=== PATIENT | female | born 1990 | race Caucasian/White ===

== ENCOUNTER → 2020-02-18 16:23 | Outpatient (CLI) | payer OTHER, SELFPAY ==
[2020-02-18 15:45] VITALS: BMI 26.6
[2020-02-18 17:38] LABS: Amphetamine Urine VISTA NEGATIVE (<1000 ng/mL); Barbiturate Urine VISTA NEGATIVE (< 200 ng/mL); Benzodiazepine Urine VISTA NEGATIVE (< 200 ng/mL); Cocaine Urine VISTA NEGATIVE (< 300 ng/mL); Ecstacy Urine VISTA NEGATIVE (< 500 ng/mL); Methadone Urine VISTA NEGATIVE (< 300 ng/mL); PCP Urine VISTA NEGATIVE (< 25 ng/mL); THC Urine VISTA NEGATIVE (< 50 ng/mL); Vista UDS pH Range 5
[2020-02-18 17:44] LABS: Absolute Neutrophil Count 5.6 X10^3/uL (2.0-7.7); Basophil# 0.02 X10^3/uL; Basophil% 0.3 % (0-1); Eosinophil# 0.09 X10^3/uL; Eosinophils% 1.1 % (0-5); Hemoglobin 12.8 g/dL (12.0-15.0); Lymphocyte % 20.4 % (19-41); Mean Corp Hgb Conc 32.8 g/dL (32-36); Mean Corpuscular Hgb 28.8 pg (27.0-32.0); Mean Corpuscular Volume 87.8 fL (81-99); Mean Platelet Vol. 10.1 fl (6.2-12.0); Monocyte# 0.52 X10^3/uL; Monocyte% 6.6 % (0-10); NRBC Flagged by Analyzer 0 % (0-5); Neutrophil % 71.2 % (47-70); Platelet Count 199 K/mm3 (150-450); RBC Distribution Width CV 12.5 % (11.6-14.6); RBC Distribution Width SD 40.4 fl (35.1-43.9); Red Blood Count 4.44 M/mm3 (4.2-5.4); White Blood Count 7.9 K/mm3 (4.4-11.0)
[2020-02-18 18:04] LABS: Amphetamine Urine VISTA NEGATIVE (<1000 ng/mL); Barbiturate Urine VISTA NEGATIVE (< 200 ng/mL); Benzodiazepine Urine VISTA NEGATIVE (< 200 ng/mL); Cocaine Urine VISTA NEGATIVE (< 300 ng/mL); Ecstacy Urine VISTA NEGATIVE (< 500 ng/mL); Methadone Urine VISTA NEGATIVE (< 300 ng/mL); PCP Urine VISTA NEGATIVE (< 25 ng/mL); THC Urine VISTA NEGATIVE (< 50 ng/mL); Vista UDS pH Range 5
[2020-02-18 19:33] LABS: Chlamydia Trachomatis by PCR Negative (Negative); Neisserai gonorrhoeae by PCR Negative (Negative); Probe Check PASS; Sample Adequacy Control PASS; Specimen Processing Control PASS
[2020-02-19 10:08] LABS: HIV - WCH Non-Reactive (Nonreactive); Hepatitis B Surface Antigen Non-Reactive (Nonreactive); Hepatitis C Antibody Non-Reactive (Nonreactive); Rubella IgG 86.3 IU/mL
[2020-02-21 01:57] LABS: Rapid Plasmin Reagin (RPR) NONREACTIVE (NONREACTIVE)
[2020-02-21 21:09] LABS: HPV APTIMA, High Risk Negative (Negative)
== END ==
PROVIDERS: PCP Nurse Practitioner Family; Referring Provider Obstetrics & Gynecology; Visit Provider Obstetrics & Gynecology
DX: Z34.80 Encounter for supervision of other normal pregnancy, unspecified trimester (principal); Z12.4 Encounter for screening for malignant neoplasm of cervix
CPT/HCPCS: 36415; 80307; 85025; 86592; 86703; 86762; 86803; 86850; 86900; 86901; 87086; 87340; 87491; 87591; 87624; 88175; G0145

== ENCOUNTER → 2020-06-02 09:14 | Outpatient (CLI) | payer OTHER, SELFPAY ==
[2020-05-05 09:36] VITALS: BMI 26.6
[2020-06-02 09:32] LABS: Absolute Lymphocyte Count 1.46 X10^3/uL (0.83-4.51); Absolute Neutrophil Count 9.1 X10^3/uL (2.0-7.7); Basophil# 0.03 X10^3/uL; Basophil% 0.3 % (0-1); Eosinophil# 0.09 X10^3/uL; Eosinophils% 0.8 % (0-5); Hematocrit 36.3 % (37-47); Hemoglobin 12.2 g/dL (12.0-15.0); Lymphocyte # 1.46 X10^3/ul (4.0); Lymphocyte % 12.7 % (19-41); Mean Corp Hgb Conc 33.6 g/dL (32-36); Mean Corpuscular Hgb 30.6 pg (27.0-32.0); Mean Platelet Vol. 9.4 fl (6.2-12.0); Monocyte# 0.68 X10^3/uL; Monocyte% 5.9 % (0-10); NRBC Flagged by Analyzer 0 % (0-5); Neutrophil % 79.1 % (47-70); Platelet Count 182 K/mm3 (150-450); RBC Distribution Width SD 42.8 fl (35.1-43.9); Red Blood Count 3.99 M/mm3 (4.2-5.4); White Blood Count 11.5 K/mm3 (4.4-11.0)
[2020-06-02 09:43] LABS: Glucose Challenge Gest 1H 50g 89 mg/dL (70-140)
== END ==
PROVIDERS: PCP Nurse Practitioner Family; Referring Provider Obstetrics & Gynecology; Visit Provider Obstetrics & Gynecology
DX: Z34.80 Encounter for supervision of other normal pregnancy, unspecified trimester (principal)
CPT/HCPCS: 36415; 82950; 85025

== ENCOUNTER → 2020-08-11 15:46 | Outpatient (CLI) | payer OTHER, SELFPAY ==
[2020-08-11 08:29] VITALS: BMI 32.5
== END ==
PROVIDERS: PCP Nurse Practitioner Family; Visit Provider Obstetrics & Gynecology
DX: Z34.90 Encounter for supervision of normal pregnancy, unspecified, unspecified trimester (principal)
CPT/HCPCS: 87081

== ENCOUNTER → 2020-09-01 10:14 | Outpatient (CLI) | payer OTHER, SELFPAY ==
[2020-08-18 08:17] VITALS: BMI 32.4
[2020-09-01 08:44] VITALS: BMI 33.5
== END ==
PROVIDERS: PCP Nurse Practitioner Family; Referring Provider Obstetrics & Gynecology; Visit Provider Obstetrics & Gynecology
DX: Z11.59 Encounter for screening for other viral diseases (principal)
CPT/HCPCS: 87635; C9803; U0003

== ENCOUNTER 2020-09-06 01:15 | Inpatient (IN) | payer OTHER, SELFPAY ==
[2020-09-01 08:44] VITALS: BMI 33.5
[2020-09-05 22:38] VITALS: BMI 33.1
[2020-09-05 22:44] VITALS: BP 140/68
[2020-09-05 22:45] VITALS: PULSE 77; PULSE 79; TEMP 36.3; O2SAT 97; O2SAT 98
[2020-09-05 23:56] LABS: Absolute Neutrophil Count 15.6 X10^3/uL (2.0-7.7); Basophil# 0.04 X10^3/uL; Basophil% 0.2 % (0-1); Eosinophil# 0.03 X10^3/uL; Eosinophils% 0.2 % (0-5); Hemoglobin 13.2 g/dL (12.0-15.0); Mean Corp Hgb Conc 33.8 g/dL (32-36); Mean Corpuscular Hgb 30.1 pg (27.0-32.0); Mean Platelet Vol. 10.3 fl (6.2-12.0); Monocyte% 5.4 % (0-10); NRBC Flagged by Analyzer 0 % (0-5); Neutrophil # 15.58 X10^3/uL (2.7-7.7); Neutrophil % 84.5 % (47-70); Platelet Count 180 K/mm3 (150-450); RBC Distribution Width CV 12.7 % (11.6-14.6); RBC Distribution Width SD 41.4 fl (35.1-43.9); Red Blood Count 4.38 M/mm3 (4.2-5.4); White Blood Count 18.4 K/mm3 (4.4-11.0)
[2020-09-06] VITALS (63 sets, daily range): BP systolic 101–134; BP diastolic 51–80; PULSE 69–194; RESP 16–18; TEMP 36.3–37.6; O2SAT 83–99
[2020-09-06] MEDS: Lactated Ringers 1,000 ML 50 ML IV (02:10)
[2020-09-06] MEDS: Lactated Ringers 500 ML 999 ML IV ×4 (02:11→12:10)
[2020-09-06] MEDS: fentaNYL-bupivacaine (epidural) 100 ML BAG EPIDURAL ×2 (04:03→09:20)
--- NOTE | 2020-09-06 04:47 | PCM.HPOB.BLA ---
- Problem List (1) 34 weeks gestation of Status: Acute Comment: electronic covid test ordered 07/30/2020sc (scheduled for 09/01/20 at 0915) (2) Lab test negative for COVID-19 virus Status: Acute Comment: 09/02/20 (3) Neck pain Status: Acute (4) Status: Acute Qualifiers: Comment: declines NIPT, carrier, ntd screening. nl anatomy US. (5) Segmental and somatic dysfunction of cervical region Status: Acute (6) Segmental and somatic dysfunction of sacral region Status: Acute (7) Segmental and somatic dysfunction of thoracic region Status: Acute (8) Supervision of other normal Status: Acute Comment: PRR MAEVE 09/05/20 surprise Spouse: TJ History and Physical Date of Admission: 09/06/20 Intake Vital Signs 09/01/20 Height 5 ft 4 in 09/01/20 Weight: 195 lb 09/01/20 BP 110/72 Intake Visit Reasons: 39 WK OB Chief Complaint: est ob Is patient in pain?: No Allergies ragweed pollen Allergy (Mild, Verified 09/01/20 08:48) Other Medications multivitamin no.47-iron fum 27 mg-folate no.1 1 mg-dha 300 mg capsule cap PO 02/18/20 [History Confirmed 09/01/20] Last Menstral Period: 11/25/19 Zika: Zika virus screening: Negative : No PFSH PFSH Medical History History of miscarriage (Acute ~2016) PAC (premature atrial contraction) (Acute) Seasonal allergies (Acute) Family History Grandfather No problems noted. Grandmother Thyroid disorder Social History (Updated 09/01/20 @ 09:[address] Teresa Sunshine MD) adopted: No household members: spouse housing: house current occupational status: employed, student current occupation: [employer] pets and animals: Yes history of recent travel: Yes out of country: Yes sexually active: Yes second hand exposure: No alcohol intake: never substance use type: does not use seatbelt use: always do you feel safe at home: Yes additional social history: TJ- marketing Pregancy History 2 Elective abortions Hx Para 0 Spontaneous abortions 1 Hx # Term Pregnancies Ectopic pregnancies Hx # Pregnancies Multiple births # of living children HPI 39 WK OB: Details: CLINT CORONEL is a 30 year old @ 40w1d presents IAL /-1 with regular ctx since last night. she denies any vb lof admits good fm. she has had an uncomplicated OB Visit MAEVE Calculator Estimated Delivery Date Method Current WG Current Estimate 09/05/20 Ultrasound #1 39w 3d Expected Delivery Route/Plan plan delivery by 41 weeks Labor Preferences- CB/BF classes: planning in may and jun labor support person: REGGIE labor intervention preferences: open to standard interventions pain management options preferred: epidural cut cord/dad catch: cord, maybe catch : yes PP control planned: [] discussed possible routes of delivery and associated risks: discussed possible delivery modalities and possible indications for each including R/B/A of , VAVD, FAVD, and CS. questions answered. special requests: none Specific Issue/Plans flu vaccine: 06/02/2020 tdap vaccine: 07/03/2020 rhogam: NA LARC form signed: 07/03 Problem list reviewed and updated with the most current plan of care details and appropriate orders placed. Relevant counseling for the gestational age provided. Continue routine care and follow up unless otherwise noted in visit notes/problem list details Initial Weight: 160 lb Date EGA Weight BP Urine Prot Glucose FHR FuHt Pres Dilation Effaced St Visit Note 04/07/20 18w 3d 163 lb 8 oz (+3 lb 8 oz) 120/68 Negative Negative 152 MH-No Vb, LOF. Has felt flutters. Enc CB class, ped discussed. MFM anatomy US order resent. 05/05/20 22w 3d 168 lb 6 oz (+8 lb 6 oz) 116/60 Negative Negative 145 SM- SM- no vb lof good fm no regular ctx glucola given 06/02/20 26w 3d 173 lb 4 oz (+13 lb 4 oz) 100/58 Negative Negative 145 GP - no LOF, VB, DFM, ctx. Passed glucola. 07/03/20 30w 6d 182 lb 6 oz (+22 lb 6 oz) 114/62 Negative Negative 125 30 GP - no ctx, LOF, VB, DFM. LARC form signed. TDAP given. 07/14/20 32w 3d 186 lb (+26 lb) 120/68 Negative Negative 130 32 SM- taking her test on 07/30 step 1 exam. no vb lof good fm n oreuglar ctx 07/31/20 34w 6d 186 lb 2 oz (+26 lb 2 oz) 122/60 Negative Negative 145 34 Cephalic GP -no ctx, LOF, VB, DFM. Discussed labor preferences and routes of delivery. Took step 1 yesterday - not sure how it went but glad to be done. 08/11/20 36w 3d 190 lb (+30 lb) 110/82 Negative Negative 140 37 Cephalic 0.5 Sm- no vb lof good fm no regular ctx 08/18/20 37w 3d 189 lb (+29 lb) 122/80 Negative Negative 140 37 Cephalic Sm- no vb lof good fm no regulr ctx 08/25/20 38w 3d 192 lb (+32 lb) 116/74 Negative Negative 140 38 Cephalic SM- no vb lof good fm no regular ctx 09/01/20 39w 3d 195 lb (+35 lb) 110/72 Negative Negative 140 39 Cephalic 1 SM- no vb good fm no regular ctx ACOG First Trimester First Trimester: Desire for , Alcohol, Tobacco Cessation, Illicit/Recreational Drug/Substance Use, Intimate Partner Violence, Barriers to care, Unstable Housing, Communication Barriers, Environmental/Work Hazards, Anticipated Course of Care, Toxoplasmosis Precations, Use of Any medications, Sexual activity, Exercise, Dental Care, Sauna/Hot tub use, Seat Belt use, Childbirth classes/Hospital facilities, , Travel, Indications for US and Screening for Aneuploidy Second Trimester Second Trimester: Selecting a care provider Diagnostics Diagnostics Details: HIV: Urine Culture: Sequential Screen: NIPT Screen: ROS Const Reports system reviewed and no additional complaints, except as documented Card Reports system reviewed and no additional complaints, except as documented Resp Reports system reviewed and no additional complaints, except as documented GI Reports system reviewed and no additional complaints, except as documented, Reports nausea Reports system reviewed and no additional complaints, except as documented Musc Reports system reviewed and no additional complaints, except as documented all other systems reviewed and negative Exam Const General: cooperative, healthy appearing, comfortable HENMT Head: normal to inspection Nose: external nose normal Face and sinus: normal facial exam Neck Neck: normal visual inspection, full ROM, no lymphadenopathy Thyroid: thyroid normal Chest Chest palpation & inspection: normal inspection of the chest Resp Effort & Inspection: normal respiratory effort GI Inspection: normal to inspection Palpation: soft, other (gravid uterus) Other: infant vertex and appropriate size for gestational age Other: Cervical Exam: /-1 Extrem General: pedal edema Results POC Urinalysis 2 Dip (Clinic) Office Urine Glucose Negative Last Edit by Giana Grant on 09/01/20 08:53 Office Urine Protein Negative Last Edit by Giana Grant on 09/01/20 08:53 Assessment & Plan Problems 1. Supervision of other normal Z34.80 PRR MAEVE 09/05/20 surprise Spouse: TJ 2. Z34.90 declines NIPT, carrier, ntd screening. nl anatomy US. 3. 34 weeks gestation of Z3A.34 electronic covid test ordered 07/30/2020hi (scheduled for 09/01/20 at 0915) 30 yo @ 40w1d presents IAL Patient presents IAL, plan expectant management for , pitocin PRN if needed. AROM clear fluid. Pain management: epidural. GBS negative. Management of any complications: none I have reviewed the [facility] and made any clinically relevant updates. Orders Orders: POC Urinalysis 2 Dip (Clinic) Today Plan Detail Goals Decrease spasm Decrease pain Improve ability to sit Barriers Prolonged studying Coding Level of Care Code OB Routine Diagnoses Supervision of other normal Z34.80 Z34.90 34 weeks gestation of Z3A.34
[2020-09-06] MEDS: Amnioinfusion- 0.9% NS 1,000 ML IV.SOLN. INTRA-UTER (08:19)
[2020-09-06] MEDS: Terbutaline 1 MG/ML Vial 0.25 MG SC (08:42)
[2020-09-06] MEDS: Ondansetron 4 MG/2 ML Vial IV (09:21)
[2020-09-06] MEDS: Lactated Ringers 1,000 ML 200 ML IV (11:30)
[2020-09-06] MEDS: Oxytocin 30 units/NS 500 ml 30 UNITS/500 ML IV.SOLN 334 UNITS IV (13:41)
--- NOTE | 2020-09-06 15:05 | PCM.OPRPT ---
Problem List (1) Lab test negative for COVID-19 virus Status: Acute Comment: 09/02/20 (2) 34 weeks gestation of Status: Acute Comment: electronic covid test ordered 07/30/2020dc (scheduled for 09/01/20 at 0915) (3) Status: Acute Qualifiers: Comment: declines NIPT, carrier, ntd screening. nl anatomy US. (4) Supervision of other normal Status: Acute Comment: PRR MAEVE 09/05/20 surprise Spouse: TJ Vaginal Delivery Maternal Presentation: Active Labor 30-year-old G1, P0 at 40 weeks gestation admitted in active labor. Patient made cervical change to complete dilation without augmentation. Amniotic Membrane Rupture Type: Spontaneous Amniotic Fluid Description: Clear Final MAEVE: 09/05/20 Gestational age: 40 Weeks and 1 Days Date of Procedure: 09/06/20 Pre-Operative Diagnosis: Term , active labor Post-Operative Diagnosis: Same Surgery/ Procedure Performed: Spontaneous Vaginal Delivery Type of Anesthesia: Epidural Description of Procedure: Patient began pushing and delivered the head in the ADIN presentation. The head was delivered atraumatically and the cord was noted around the body and delivered through. The anterior and posterior shoulders delivered without complication followed by the rest of the infant and the was placed on the maternal abdomen. Delayed cord clamping was employed for approximately 60 seconds. Cord was clamped and cut and gentle traction was applied to the cord and the placenta delivered spontaneously immediately following it was noted to be intact with three-vessel cord. The perineum and vagina were inspected and a midline second-degree laceration was noted and repaired in the standard fashion using 3-0 Vicryl rapide suture. EBL was 300 cc. Patient and tolerated delivery well. Presentation: Vertex, ADIN Placental Delivery Description: Spontaneous Placenta Disposition: [facility] Cord Vessel Description: 3 Vessels Nuchal Cord Compression: Without compression Cord Entanglement: - - Around the body Drain: Slade to straight drain Estimated Blood Loss: 300 cc Infant A gender: Male (1 minute): 8 (5 minute): 9 Episiotomy Description: None Laceration: Midline, Perineal Extension/lac, 2nd degree Medications given after delivery: IV Pitocin Complications: None Multi Select Codes - Urinary/Genital Urinary/Genital CPT Codes: 98950 Vaginal Delivery [facility]
--- NOTE | 2020-09-06 15:10 | DCINST_ITS ---
Discharge Diet: No Restrictions Discharge Activity: Return to Normal Activity, May not drive while taking narcotic pain medications., May Shower May resume sexual activity in: 4-6 weeks Additional Activity Instructions:: Nothing in the vagina for 4-6 weeks. You may return to work/school in 6 weeks. Call your doctor if your incision/area has: Continuous Slow Oozing, Sudden Increased Bleeding, Increased Pain/ Swelling, Increased Redness, Foul Smelling Discharge Additional Instructions: If you experience any of the following, contact your healthcare provider. * Bleeding that soaks a pad every hour for 2 hours * Fever 100.4 or higher * Unrelieved incision or abdominal pain * Swelling, redness, discharge or bleeding from your incision or episiotomy site * Your incision begins to separate * Problems urinating (including inability to urinate or burning while urinating). * Visual changes * Severe headache * Flu-like symptoms * Pain or redness in one of both of your breasts * Pain, warmth, tenderness or swelling in your legs, especially the calf area * Frequent nausea and vomiting * Symptoms of depression or anxiety If you experience any of the following, call 911 or go to the nearest Emergency Room. * Chest pain * Problems breathing * Seizure activity * Partial or complete paralysis of a body part, slurred speech, weakness or drooping of the face, or a sudden inability to walk or hold your balance Allergies/Adverse Reactions: Allergies ragweed pollen Allergy (Mild, Verified 09/01/20 08:48) Other Seasonal Allergies Medications to take at Discharge multivitamin no.47-iron fum 27 mg-folate no.1 1 mg-dha 300 mg capsule 1 cap PO DAILY 02/18/20 Naproxen [Naprosyn] 250 - 500 mg PO Q8H PRN PRN #30 tab 09/06/20 The following prescriptions were given: Naproxen [Naprosyn] 250 - 500 mg PO Q8H PRN PRN #30 tab PRN Reason: MILD PAIN Transmission Status: Received by [facility] [facility]27 When: Call to make an appointment with your doctor in 6 weeks. If you had elevated Blood Pressure or 4th degree laceration you will need to be seen in 2 weeks. Primary Care Physician: Sharri Rincon NP, REHAB DIRECTOR OCCUPATIONAL THERAPIST-C [Primary Care Provider] - Test Results: Test results from this visit will be discussed in further detail at your follow- up appointment, if applicable.
[2020-09-06] MEDS: Naproxen 250 MG Tablet 500 MG PO (18:17)
[2020-09-07 03:58] VITALS: BP 106/43; PULSE 66; RESP 16; TEMP 37.2
[2020-09-07 08:07] VITALS: BP 96/52; PULSE 78; RESP 16; TEMP 36.7; O2SAT 98
--- NOTE | 2020-09-07 09:08 | PCM.PN.OB ---
Patient Problems: Active and Suspected Problems (Last Reviewed 09/01/20 @ 08:49 by Giana Grant) Lab test negative for COVID-19 virus (Acute) 09/02/20 34 weeks gestation of (Acute) electronic covid test ordered 07/30/2020sc (scheduled for 09/01/20 at 0915) Neck pain (Acute) Segmental and somatic dysfunction of sacral region (Acute) Segmental and somatic dysfunction of thoracic region (Acute) Segmental and somatic dysfunction of cervical region (Acute) (Acute) declines NIPT, carrier, ntd screening. nl anatomy US. Supervision of other normal (Acute) PRR MAEVE 09/05/20 surprise Spouse: TJ Subjective: Patient doing well without complaints. Tolerating PO. Ambulating and voiding without difficulty. Feeding well. Denies chest pain, shortness of breath, calf pain/swelling, fevers, chills, lightheadedness. - Physical Exam Vitals/I&O's: Vital Signs Temp Pulse Resp BP Pulse Ox 98.0 F 78 16 96/52 L 98 09/07/20 08:07 09/07/20 08:07 09/07/20 08:07 09/07/20 08:07 09/07/20 08:07 Oxygen Delivery Method Room Air Weight: 193 lb Body Mass Index (BMI) 33.1 Intake and Output for Last 24 Hours 09/05/20 09/06/20 09/07/20 23:59 23:59 23:59 Intake Total 5031.67 / 5031.67 Output Total 2625 / 2625 600 / 600 Balance 2406.67 / 2406.67 -600 / -600 General: Alert, Oriented x3, Cooperative, No apparent distress, Well developed, Well nourished HEENT: Atraumatic, PERRLA, EOMI, Normocephalic Neck: Supple, No JVD Lungs: Normal air movement Cardiovascular: Regular rate Abdomen: Soft, Non Tender, Non-Distended, - - fundus firm Extremities: No edema, No Calf Tenderness Neurological: Cranial nerves II-XII grossly intact, Neuro grossly intact Psych/Mental Status: Normal Affect, Appropriate Microbiology Past 72 Hours 09/05/20 23:25 Mucosa - Nose SARS-CoV-2 Antigen (Rapid) - Final Current Medications Acetaminophen (Acetaminophen 500 Mg Tablet) 1,000 mg PO Q8H PRN PRN PRN Reason: Pain Score 1-3 Bisacodyl (Bisacodyl 10 Mg Suppository) 10 mg RECTAL UD PRN PRN Reason: If no BM Dibucaine (Dibucaine 30 Gm Tube) 1 applic TOPICAL TID PRN PRN; Protocol PRN Reason: Discomfort Hydrocortisone (Hydrocortisone 2.5% Crm) 1 applic TOPICAL TID PRN PRN; Protocol PRN Reason: Discomfort Methylergonovine Maleate (Methylergonovine 0.2 Mg/Ml Ampul) 0.2 mg IM X1 PRN PRN Reason: Excess bleeding/uterine atony Naproxen (Naproxen 250 Mg Tablet) 500 mg PO Q8H PRN PRN PRN Reason: Pain Score 1-3 Last Admin: 09/06/20 18:17 Dose: 500 mg Documented by: Ondansetron HCl (Ondansetron 4 Mg/2 Ml Vial) 4 mg IV Q4H PRN PRN PRN Reason: Nausea Oxycodone HCl (Oxycodone 5 Mg Tablet) 5 - 10 mg PO Q4H PRN PRN PRN Reason: Pain Score 4-10 Senna/Docusate Sodium (Senna/Docusate Sodium 1 Tablet) 1 - 2 tablet PO DAILY PRN PRN PRN Reason: Constipation Simethicone (Simethicone 80 Mg Tablet) 80 mg PO PCHS PRN PRN Reason: Indigestion/Stomach pain Sodium Chloride (0.9% Saline Lock 10 Ml Syringe) 5 - 15 ml IV UD PRN PRN Reason: SALINE FLUSH Medical Necessity - Tobacco Use Smoking Status: Never smoker Assessment/Plan All Active Problems (Last Reviewed 09/01/20 @ 08:49 by Giana Grant) Lab test negative for COVID-19 virus (Acute) 34 weeks gestation of (Acute) Neck pain (Acute) Segmental and somatic dysfunction of sacral region (Acute) Segmental and somatic dysfunction of thoracic region (Acute) Segmental and somatic dysfunction of cervical region (Acute) (Acute) Supervision of other normal (Acute) s/p PPD # 1 1. routine post delivery care 2. breast feeding- support given 3. rh positive 4. rubella immune
[2020-09-07 11:58] VITALS: BP 101/50; PULSE 82; RESP 16; TEMP 36.6; O2SAT 98
== END 2020-09-07 15:45 | disposition home or self-care (01) | DRG 807 ==
LOC: WPOUT 01:22 → WP 01:22
PROVIDERS: Obstetrics & Gynecology; Admitting Provider Obstetrics & Gynecology; PCP Nurse Practitioner Family; Visit Provider Obstetrics & Gynecology
DX: O69.82X0 Labor and delivery complicated by other cord entanglement, without compression, not applicable or unspecified (principal); Z37.0 Single live birth; Z3A.40 40 weeks gestation of pregnancy; O70.1 Second degree perineal laceration during delivery; O75.89 Other specified complications of labor and delivery; M99.02 Segmental and somatic dysfunction of thoracic region; M99.04 Segmental and somatic dysfunction of sacral region; M99.01 Segmental and somatic dysfunction of cervical region
CPT/HCPCS: 59025; 59050; 85025; 86850; 86900; 86901; 87426; 99218; J7030; J7120; G0378; J2405

== ENCOUNTER → 2020-10-21 09:19 | Outpatient (CLI) | payer OTHER, SELFPAY ==
[2020-10-13 11:05] VITALS: BMI 29.9
--- NOTE | 2020-10-21 09:23 | US_ITS ---
STUDY: ULTRASOUND BREAST - RIGHT REASON FOR EXAM: Female, 30 years old. Palpable lump in the right breast. The patient stopped breast-feeding 2 weeks ago. TECHNIQUE: Axial and longitudinal images of the RIGHT breast were performed with a high resolution ultrasound transducer. # OF IMAGES: 50 COMPARISON: None. FINDINGS: RIGHT Breast: Dense fibroglandular tissue. Mildly dilated ducts at the 12 o''clock position of the breast at 2 cm from the nipple. US/Breast Limited Unilateral IMPRESSION: Dense fibroglandular tissue. Mildly dilated ducts at the 12 o''clock position of the breast at 2 cm from the nipple. ASSESSMENT CATEGORY: BIRADS Category 2: Benign. A letter regarding these results will be sent to the patient by the facility within 30 days. Electronically Signed: Tomas James MD at 11:11 EST , Service support ,
== END ==
PROVIDERS: PCP Nurse Practitioner Family; Referring Provider Obstetrics & Gynecology; Visit Provider Obstetrics & Gynecology
DX: N63.10 Unspecified lump in the right breast, unspecified quadrant (principal)
CPT/HCPCS: 76642

== ENCOUNTER → 2021-12-29 | Outpatient (CLI) | payer OTHER, SELFPAY ==
[2021-12-28 16:06] LABS: Amphetamine Urine VISTA NEGATIVE (<1000 ng/mL); Barbiturate Urine VISTA NEGATIVE (< 200 ng/mL); Benzodiazepine Urine VISTA NEGATIVE (< 200 ng/mL); Cocaine Urine VISTA NEGATIVE (< 300 ng/mL); Ecstacy Urine VISTA NEGATIVE (< 500 ng/mL); Methadone Urine VISTA NEGATIVE (< 300 ng/mL); PCP Urine VISTA NEGATIVE (< 25 ng/mL); THC Urine VISTA NEGATIVE (< 50 ng/mL); Vista UDS pH Range 5
[2022-01-01 05:07] LABS: Chlamydia By Nucleic Acid AMP Negative (Negative)
[2022-01-01 08:16] LABS: Gonococcus By Nucleic Acid AMP Negative (Negative)
== END | disposition home or self-care (01) ==
LOC: LABSPEC 10:22
PROVIDERS: PCP Nurse Practitioner Family; Visit Provider Obstetrics & Gynecology
DX: Z34.90 Encounter for supervision of normal pregnancy, unspecified, unspecified trimester (principal)
CPT/HCPCS: 80307; 87086; 87088; 87491; 87591

== ENCOUNTER → 2022-01-25 | Outpatient (CLI) | payer OTHER, SELFPAY ==
[2022-01-25 13:44] LABS: Absolute Lymphocyte Count 1.61 X10^3/uL (0.83-4.51); Absolute Neutrophil Count 6.8 X10^3/uL (2.0-7.7); Basophil# 0.02 X10^3/uL; Basophil% 0.2 % (0-1); Eosinophil# 0.09 X10^3/uL; Hematocrit 35.4 % (37-47); Hemoglobin 12.1 g/dL (12.0-15.0); Lymphocyte # 1.61 X10^3/ul (0.83-4.51); Lymphocyte % 17.6 % (19-41); Mean Corp Hgb Conc 34.2 g/dL (32-36); Mean Corpuscular Hgb 29.2 pg (27.0-32.0); Mean Corpuscular Volume 85.5 fL (81-99); Mean Platelet Vol. 9.3 fl (6.2-12.0); Monocyte# 0.64 X10^3/uL; NRBC Flagged by Analyzer 0 % (0-5); Neutrophil # 6.76 X10^3/uL (2.7-7.7); Neutrophil % 73.8 % (47-70); Platelet Count 187 K/mm3 (150-450); RBC Distribution Width CV 13.2 % (11.6-14.6); RBC Distribution Width SD 40.4 fl (35.1-43.9); Red Blood Count 4.14 M/mm3 (4.2-5.4); White Blood Count 9.2 K/mm3 (4.4-11.0)
[2022-01-25 15:25] LABS: HIV - WCH Non-Reactive (Nonreactive); Hepatitis B Surface Antigen Non-Reactive (Nonreactive); Hepatitis C Antibody Non-Reactive (Nonreactive); Rubella IgG Reactive (Nonreactive); Syphilis Antibodies Non-reactive
== END | disposition home or self-care (01) ==
LOC: PAVLAB 13:26
PROVIDERS: PCP Nurse Practitioner Family; Referring Provider Obstetrics & Gynecology; Visit Provider Obstetrics & Gynecology
DX: Z34.90 Encounter for supervision of normal pregnancy, unspecified, unspecified trimester (principal)
CPT/HCPCS: 36415; 85025; 86703; 86762; 86780; 86803; 86850; 86900; 86901; 87340

== ENCOUNTER → 2022-03-30 | Outpatient (CLI) | payer OTHER, SELFPAY ==
--- NOTE | 2022-03-30 | FORE_PTH ---
PATIENT: CLINT CORONEL LOC: [facility] U#:[id number] AGE/SX: 32/F ROOM: RE03/30/[address]: Dr. Preeti Lyman DO : 1990 BED: DIS: 03/30/2022 SPEC #: [id number] RECD: 03/30/22 09:58 STATUS: LOPEZ SHAWNA #: [id number] PARVEEN: 03/30/22 00:[address]: Preeti Lyman DEPT: SURGICAL PATHOLOGY RECD BY: Shea Alfonso ENTERED: 03/30/22 09:58 SP TYPE: FOREIGN B OTHR DR: ALEK Landin Tissues: FOREIGN BODY Procedures: Surgery Specimen Level I HEADER OPERATION: Tick removal PRE-OP DIAGNOSIS: Tick bite TISSUE SUBMITTED: Tick MICROSCOPIC DIAGNOSIS Tick, removal: Dermacentor variabilis, female (Beninese dog tick). AM:juanita 03/30/2022 MICROSCOPIC DESCRIPTION Slides are reviewed. GROSS DESCRIPTION Received labeled with the patient's name and designated tick. The specimen consists of a tick measuring 0.5 x 0.5 x 0.1 cm. The specimen is processed for microscopic examination. / AM:juanita 03/30/2022 CPT: 92892
[2022-03-30 09:30] LABS: Lyme Ab Screen Interpretation REF LAB
[2022-04-04 15:07] LABS: Lyme IgG P18 Ab Absent (.); Lyme IgG P23 Ab Absent (.); Lyme IgG P28 Ab Absent (.); Lyme IgG P30 Ab Absent (.); Lyme IgG P39 Ab Absent (.); Lyme IgG P41 Ab Absent (.); Lyme IgG P45 Ab Absent (.); Lyme IgG P58 Ab Absent (.); Lyme IgG P66 Ab Absent (.); Lyme IgG P93 Ab Absent (.); Lyme IgM P23 Ab Absent (.); Lyme IgM P39 Ab Absent (.); Lyme IgM P41 Ab Absent (.)
[2022-04-04 15:55] LABS: Lyme IgG WB Interpretation Negative (.); Lyme IgM WB Interpretation Negative (.); Lyme Scn Total Ab w/Rflx Negative (Negative)
== END | disposition home or self-care (01) ==
LOC: LAB 09:26
PROVIDERS: PCP Nurse Practitioner Family; Visit Provider Obstetrics & Gynecology
DX: T63.481A Toxic effect of venom of other arthropod, accidental (unintentional), initial encounter (principal)
CPT/HCPCS: 36415; 86617; 86618; 88300

== ENCOUNTER → 2022-04-26 | Outpatient (CLI) | payer OTHER, SELFPAY ==
[2022-04-26 08:24] LABS: Absolute Lymphocyte Count 1.59 X10^3/uL (0.83-4.51); Basophil# 0.04 X10^3/uL; Basophil% 0.5 % (0-1); Eosinophil# 0.08 X10^3/uL; Hematocrit 34.7 % (37-47); Hemoglobin 11.7 g/dL (12.0-15.0); Lymphocyte # 1.59 X10^3/ul (0.83-4.51); Lymphocyte % 19.4 % (19-41); Mean Corp Hgb Conc 33.7 g/dL (32-36); Mean Corpuscular Hgb 30.1 pg (27.0-32.0); Mean Corpuscular Volume 89.2 fL (81-99); Mean Platelet Vol. 9.5 fl (6.2-12.0); Monocyte# 0.44 X10^3/uL; Monocyte% 5.4 % (0-10); NRBC Flagged by Analyzer 0 % (0-5); Neutrophil # 5.97 X10^3/uL (2.7-7.7); Neutrophil % 72.6 % (47-70); Platelet Count 180 K/mm3 (150-450); RBC Distribution Width CV 13.2 % (11.6-14.6); RBC Distribution Width SD 42.8 fl (35.1-43.9); Red Blood Count 3.89 M/mm3 (4.2-5.4); White Blood Count 8.2 K/mm3 (4.4-11.0)
[2022-04-26 08:53] LABS: Glucose Challenge Gest 1H 50g 124 mg/dL (70-140)
== END | disposition home or self-care (01) ==
LOC: PAVLAB 08:09
PROVIDERS: PCP Nurse Practitioner Family; Referring Provider Obstetrics & Gynecology; Visit Provider Obstetrics & Gynecology
DX: Z34.80 Encounter for supervision of other normal pregnancy, unspecified trimester (principal)
CPT/HCPCS: 36415; 82950; 85025

== ENCOUNTER → 2022-06-23 | Outpatient (CLI) | payer OTHER, SELFPAY | END | disposition home or self-care (01) | LOC: LABSPEC 11:15 | PROVIDERS: PCP Nurse Practitioner Family; Visit Provider Obstetrics & Gynecology | DX: Z34.80 Encounter for supervision of other normal pregnancy, unspecified trimester (principal) | CPT/HCPCS: 87081 ==

== ENCOUNTER → 2022-07-30 | Outpatient (CLI) | payer OTHER, SELFPAY ==
--- NOTE | 2022-07-30 13:20 | US_ITS ---
STUDY: OBSTETRICAL ULTRASOUND - BIOPHYSICAL PROFILE REASON FOR EXAM: Female, 32 years old post dates LMP: Unknown. PRIOR ULTRASOUND: None. TECHNIQUE: Transabdominal TECHNICAL QUALITY: Adequate. FINDINGS: There is a single intrauterine fetus. The fetus is in a cephalic presentation. There is demonstrated cardiac activity with a heart rate of 138 bpm. There is a normal amniotic fluid volume. The largest amniotic fluid pocket measures 3.5 cm. The amniotic fluid index (TAVARES) is 11.5 cm. The placenta is posterior in location and is not low lying. There are Grade 2 placental changes. Age by LMP: 41 weeks, 1 days. MAEVE by LMP: 07/22/2022. BIOPHYSICAL PROFILE: Breathing Movements (FBM): 2 Gross Body Movements (GBM): 2 Tone (FT): 2 Amniotic Fluid Volume (AFV): 2 TOTAL SCORE: US/Biophysical Prof W/O Non Stres IMPRESSION: Normal biophysical profile of 04/19. Electronically Signed: Tomas James MD at 14:12 EST ,
== END | disposition home or self-care (01) ==
LOC: US 13:19
PROVIDERS: PCP Nurse Practitioner Family; Visit Provider Obstetrics & Gynecology
DX: O48.0 Post-term pregnancy (principal)
CPT/HCPCS: 76819

== ENCOUNTER 2022-07-31 07:00 | Inpatient (IN) | payer OTHER, SELFPAY ==
[2022-07-31] VITALS (46 sets, daily range): BP systolic 102–166; BP diastolic 49–75; PULSE 63–98; RESP 16; TEMP 36–36.6; O2SAT 90–100; BMI 35.8
[2022-07-31] MEDS: Lactated Ringers 1,000 ML 50 ML IV (07:45)
--- NOTE | 2022-07-31 08:00 | HP.PCM.OB_ITS ---
HPI - General General Date of Admission: 07/31/22 HPI Narrative CLINT CORONEL, is a 32 F who presents for IOL secondary to postdates Maternal Data Information MAEVE Calculator Estimated Delivery Date Method Current WG Current Estimate 07/22/22 LMP (Certain) 41w 2d PFSH PFS Medical History History of miscarriage (~2015) Neck pain PAC (premature atrial contraction) Placenta previa Seasonal allergies Segmental and somatic dysfunction of cervical region Segmental and somatic dysfunction of sacral region Segmental and somatic dysfunction of thoracic region Home Medications multivitamin no.47-iron fum 27 mg-folate no.1 1 mg-dha 300 mg capsule (PNV-DHA) 1 cap PO DAILY 02/18/20 [History Last Taken 07/31/22] Allergy/AdvReac Type Severity Reaction Status Date / Time ragweed pollen Allergy Mild Other Verified 07/21/22 09:01 Family History Grandfather Parkinsons disease aqquired from agent orange Prostate cancer Grandmother Thyroid disorder Unknown Idiopathic pulmonary fibrosis Heart disease Social History adopted: No household members: spouse housing: house current occupational status: employed and student current occupation: [employer] pets and animals: Yes (Citizen [place] and [place] Beagle Chris and Meño) pets and animals: dog(s) history of recent travel: Yes out of country: Yes sexually active: Yes Smoking Status: Never smoker second hand exposure: No alcohol intake: never substance use type: does not use caffeine: Yes what type of physical activity do you participate in: none seatbelt use: always do you feel safe at home: Yes 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 Date Name GA/Weeks Outcome Route Bth Weight Infant Gen Labor Lgth Anesthesia Del Locatn Provider FOB 09/06/20 Jonathan 40 live - full term 8lbs 3.5oz Male epidural WC Marlee TJ Delivery Date: 09/06/20 Last Updated by: Eulalia Salinas admitted in active labor Visit Details Expected Delivery Route/Plan Labor Preferences- CB/BF classes: no labor support person: Chica(Friend) TJ/army labor intervention preferences: [] pain management options preferred: epidural cut cord/dad catch: [] : yes PP control planned: discussed discussed possible routes of delivery and associated risks: [] special requests: [] Plans Covid status: vaccinated Flu vaccine: discussed Tdap vaccine: given Rhogam: NA LARC form signed: yes Problem list reviewed and updated with the most current plan of care details and appropriate orders placed. Relevant counseling for the gestational age provided. Continue routine care and follow up unless otherwise noted in visit notes/problem list details OB Flowsheet Initial Weight: Not Recorded Date -?-?-?-?-?-?-?-?-?-?-?-?- EGA Weight BP Urine Prot -?-?-?-?-?-?-?-?-?-?-?-?- Glucose FHR FuHt Pres Dilation -?-?-?-?-?-?-?-?-?-?-?-?- Effaced St Visit Note 12/28/21 -?-?-?-?-?-?-?-?-?-?-?-?- 10w 4d 182 lb 118/66 -?-?-?-?-?-?-?-?-?-?-?-?- 165 -?-?-?-?-?-?-?-?-?-?-?-?- SM- CRL 3.5cm co ns with LMP 01/25/22 -?-?-?-?-?-?-?-?-?-?-?-?- 14w 4d 184 lb 8 oz 126/60 Nega tive -?-?-?-?-?-?-?-?-?-?-?-?- Negative 163 -?-?-?-?-?-?-?-?-?-?-?-?- MH-No Vb, LOF. B r US to confirm FHT. Labs today 03/01/22 -?-?-?-?-?-?-?-?-?-?-?-?- 19w 4d 185 lb 104/68 -?-?-?-?-?-?-?-?-?-?-?-?- 150 -?-?-?-?-?-?-?-?-?-?-?-?- SM- no vb lof go od fm no regular ctx 03/30/22 -?-?-?-?-?-?-?-?-?-?-?-?- 23w 5d 192 lb 4 oz 108/72 Nega tive -?-?-?-?-?-?-?-?-?-?-?-?- Negative 154 24 -?-?-?-?-?-?-?-?-?-?-?-?- JV- pt has a tic k on her neck. It was grasped and pulled out alive in it's entirety. pt has rpt ultrasound at 28 weeks and no further concerns. Lyme antibody titer with western blot ordered. 04/26/22 -?-?-?-?-?-?-?-?-?-?-?-?- 27w 4d 199 lb 6 oz 106/58 Nega tive -?-?-?-?-?-?-?-?-?-?-?-?- Negative 158 28 -?-?-?-?-?-?-?-?-?-?-?-?- MH-no VB, LOF. G ood FM. 28 wk labs,tdap, larc. 04/2905/10/22 -?-?-?-?-?-?-?-?-?-?-?-?- 29w 4d 198 lb 2 oz 118/70 Nega tive -?-?-?-?-?-?-?-?-?-?-?-?- Negative 140 31 -?-?-?-?-?-?-?-?-?-?-?-?- SM- no vb lof go od fm no reuglar ctx 05/26/22 -?-?-?-?-?-?-?-?-?-?-?-?- 31w 6d 201 lb 4 oz 112/69 Nega tive -?-?-?-?-?-?-?-?-?-?-?-?- Negative 145 32 -?-?-?-?-?-?-?-?-?-?-?-?- JV- no lof, vagi nal bleeding, or dec fm. taking step 2 end of month 06/07/22 -?-?-?-?-?-?-?-?-?-?-?-?- 33w 4d 202 lb 8 oz 100/64 -?-?-?-?-?-?-?-?-?-?-?-?- 150 33 -?-?-?-?-?-?-?-?-?-?-?-?- JV- no lof, vagi nal bleeding, or dec. 06/23/22 -?-?-?-?-?-?-?-?-?-?-?-?- 35w 6d 206 lb 2 oz 106/68 Nega tive -?-?-?-?-?-?-?-?-?-?-?-?- Negative 145 35 Cephalic 1 -?-?-?-?-?-?-?-?-?-?-?-?- 30 -3 JV- GBS co llected. still waiting onstep 2 results. NO complaints today. 06/29/22 -?-?-?-?-?-?-?-?-?-?-?-?- 36w 5d 206 lb 100/64 Negative -?-?-?-?-?-?-?-?-?-?-?-?- Negative 154 37 Cephalic -?-?-?-?-?-?-?-?-?-?-?-?- JV- gbs negative , no contractions or complalints today. she passed her step 2! 07/05/22 -?-?-?-?-?-?-?-?-?-?-?-?- 37w 4d 208 lb 8 oz 125/77 Nega tive -?-?-?-?-?-?-?-?-?-?-?-?- Negative 156 38 Cephalic -?-?-?-?-?-?-?-?-?-?-?-?- Lc- doing well. no concerns. no lof,vb,ctx. good FM. declines VE today. 07/12/22 -?-?-?-?-?-?-?-?-?-?-?-?- 38w 4d 211 lb 118/61 Negative -?-?-?-?-?-?-?-?-?-?-?-?- Negative 150 39 Cephalic -?-?-?-?-?-?-?-?-?-?-?-?- Sm- no vb lof go od fm no regular ctx 07/21/22 -?-?-?-?-?-?-?-?-?-?-?-?- 39w 6d 210 lb 120/69 Negative -?--?-?-?-?-?-?-?-?-?-?-?- Negative 143 38 Cephalic 1 -?-?-?-?-?-?-?-?-?-?-?-?- 50 -2 JV- no lof , vaginal bleeding, or dec fm. IOL for 41 weeks set up. pt has an interview on her 41 week ibrahima. 41 weeks 1 day set up. 07/31/22 -?-?-?-?-?-?-?-?-?-?-?-?- 41w 2d 208 lb 12.8 oz -?-?-?-?-?-?-?-?-?-?-?-?- -?-?-?-?-?-?-?-?-?-?-?-?- NST FHR Rate Baby A Baseline: 130 Variability:: Moderate Accelerations:: 15 x 15 Decelerations:: None NST Reactive:: Yes FHR Category:: Category I Uterine Activity:: irregular ROS Constitutional Constitutional: Reports systems reviewed and no addt'l complaints, except as documented Eyes Eyes: Denies change in vision ENT HEENT: Reports systems reviewed and no addt'l complaints, except as documented; Denies headache(s) Cardiovascular Cardiovascular: Reports systems reviewed and no addt'l complaints, except as documented; Denies chest pain or dyspnea Respiratory/Chest Respiratory/Chest: Reports systems reviewed and no addt'l complaints, except as documented Gastrointestinal Gastrointestinal: Reports systems reviewed and no addt'l complaints, except as documented; Denies abdominal pain Genitourinary Genitourinary: Reports systems reviewed and no addt'l complaints, except as documented, contractions Details: present (irregular) and movement Details: present; Denies dysuria or genital lesions Musculoskeletal Musculoskeletal: Reports systems reviewed and no addt'l complaints, except as documented Neurologic Neurologic: Reports systems reviewed and no addt'l complaints, except as documented Endocrine Endocrinology: Reports systems reviewed and no addt'l complaints, except as documented Vital Signs Vital Signs Vital Signs: Weight Weight: 208 lb 12.8 oz Body Mass Index (BMI) 35.8 Physical Exam Const alert, oriented x3, no apparent distress and healthy appearing HEENT normocephalic and moist oral mucous membranes Head and Scalp: atraumatic Neck full ROM, no lymphadenopathy, supple and thyroid normal General: trachea midline Lymph Lymphatic: no lymphadenopathy noted Chest inspection of chest normal Resp normal respiratory effort Cardio regular rate GI normal to inspection, nondistended, normoactive bowel sounds, soft to palpation and non-tender Inspection: gravid external exam normal Manual OB Exam: estimated gestational size appropriate, presentation cephalic, dilated, effaced and station Extremity normal to inspection General Extremity: Negative for edema Skin no rashes or lesions noted Neuro no focal motor deficits and deep tendon reflexes 2+ bilaterally Motor Exam: strength 5/5 throughout and clonus absent Psych mental status grossly normal Labs Labs Labs: Blood Type O POSITIVE Antibody Screen NEGATIVE Hct 34.7 % (37-47) L Hgb 11.7 g/dL (12.0-15.0) L Syphilis Total Ab Non-reactive Rubella IgG Antibody Reactive (Nonreactive) Hep Bs Antigen Non-Reactive (Nonreactive) Chlamydia DNA (BASSAM) Negative (Negative) Neisseria gonorrhoeae DNA (BASSAM) Negative (Negative) HIV 1&2 Antibody Non-Reactive (Nonreactive) Glucose 1 Hr 50 gm 124 mg/dL (70-140) Rhogam given: No Assessment & Plan (1) Encounter for induction of labor: (2) : QUALIFIERS: Weeks of gestation: 39 weeks Qualified Code(s): Z3A.39 - 39 weeks gestation of COMMENT: GBS negative, declined genetic and carrier screen. 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 (3) Supervision of other normal : COMMENT: PRR MAEVE 07/22/22 surprise PC Jonathan TJ (4) Tick bite: COMMENT: 04/06 Lyme test results negative PLAN: Plan Patient presents IOL, plan management for with pitocin/AROM. Pain management: plans epidural. GBS negative. Management of any complications: none I have reviewed the [facility] and made any clinically relevant updates.
[2022-07-31] MEDS: 0.9% Normal Saline Single 100 ML IV.SOLN. INTRA-UTER (08:07)
[2022-07-31] MEDS: Oxytocin 15 Units/NS 250ml 15 UNITS/250 ML IV.SOLN 2 UNITS IV (08:11)
[2022-07-31 08:16] LABS: Absolute Lymphocyte Count 1.57 X10^3/uL (0.83-4.51); Absolute Neutrophil Count 7.3 X10^3/uL (2.0-7.7); Basophil# 0.03 X10^3/uL; Basophil% 0.3 % (0-1); Eosinophil# 0.04 X10^3/uL; Eosinophils% 0.4 % (0-5); Hematocrit 36.8 % (37-47); Hemoglobin 13.2 g/dL (12.0-15.0); Lymphocyte # 1.57 X10^3/ul (0.83-4.51); Lymphocyte % 16.4 % (19-41); Mean Corp Hgb Conc 35.9 g/dL (32-36); Mean Corpuscular Hgb 31.6 pg (27.0-32.0); Mean Platelet Vol. 10.2 fl (6.2-12.0); Monocyte# 0.49 X10^3/uL; Monocyte% 5.1 % (0-10); NRBC Flagged by Analyzer 0 % (0-5); Neutrophil # 7.34 X10^3/uL (2.7-7.7); Platelet Count 201 K/mm3 (150-450); RBC Distribution Width CV 13.2 % (11.6-14.6); Red Blood Count 4.18 M/mm3 (4.2-5.4); White Blood Count 9.6 K/mm3 (4.4-11.0)
[2022-07-31] MEDS: LACTATED RINGERS 500 ML 999 ML IV ×2 (11:46→13:25)
[2022-07-31] MEDS: fentaNYL-bupivacaine (epidural) 100 ML BAG EPIDURAL (12:49)
[2022-07-31] MEDS: Oxytocin 15 Units/NS 250ml 15 UNITS/250 ML IV.SOLN 83 UNITS IV (15:05)
--- NOTE | 2022-07-31 15:42 | OP.PCM_ITS ---
Assessment & Plan (1) Supervision of other normal : COMMENT: PRR MAEVE 07/22/22 surprise PC Jonathan TJ (2) : QUALIFIERS: Weeks of gestation: 39 weeks Qualified Code(s): Z3A.39 - 39 weeks gestation of COMMENT: GBS negative, declined genetic and carrier screen. 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 (3) Encounter for induction of labor: (4) Vaginal delivery: COMMENT: IOL postdates SM 41 boy Jarrell Maternal Data Information MAEVE Calculator Estimated Delivery Date Method Current WG Current Estimate 07/22/22 LMP (Certain) 41w 2d Vaginal Delivery Operative Information Date of Procedure: 07/31/22 Pre-Operative Diagnosis: IOL Post-Operative Diagnosis: same Surgery / Procedure Performed: Spontaneous Vaginal Delivery Type of Anesthesia: Epidural Special Medications: none Estimated Blood Loss: 200 Fluids Replaced: crystalloid Findings Description of Procedure: Patient began pushing and delivered the head in the ADIN presentation. The head was delivered atraumatically . The anterior and posterior shoulders delivered without complication followed by the rest of the infant and the was placed on the maternal abdomen. Delayed cord clamping was employed for approximately 60 seconds. Cord was clamped and cut and gentle traction was applied to the cord and the placenta delivered spontaneously immediately following it was noted to be intact with three-vessel cord. The perineum and vagina were inspected and noted to have a second degree lac repaired in the usual fashion. EBL was 200. Patient and tolerated delivery well. Presentation: ADIN Amniotic Membrane Rupture Type: Spontaneous Amniotic Fluid Description: Clear Placental Delivery Description: Spontaneous Placenta Disposition: [facility] Cord Vessel Description: 3 Vessels Cord Entanglement: None A Gender: Male Delayed Cord Clamping: Yes Post Vaginal Delivery Medications Given After Delivery: IV Pitocin Episiotomy Description: None Laceration: Perineal Extension/lac and 2nd degree Complication Complications: None Procedures Urinary/Genital [id number]: [id number] Vaginal Delivery [facility]
--- NOTE | 2022-07-31 15:44 | DCINST_ITS ---
Discharge Instructions Diet Discharge Diet: No restrictions Activity Discharge Activity: Return to Normal Activity, May Drive, May Shower and May Take a Tub Bath (in 4 weeks) May resume sexual activity in: 6-8 weeks (after seen by OB provider) Weight Bearing Status: Full weight bearing Lifting Restrictions: none Dressing / Incision Call your doctor if you observe: Fever of 101 or Higher, Inability to urinate, Using more than 1 pad per hour (for more than 2 hours in a row or more), Shortness of breath, Dizziness, Chest pain and - (headache not controlled with tylenol, change in vision) Follow Up Care When: in 6 weeks for visit, call the office to make the appointment. If you had elevated blood pressures call the office to be seen within 1 week. Test Results: Test results from this visit will be discussed in further detail at your follow- up appointment, if applicable. Discharge Plan Admission Admit Date/Time: 07/31/22 07:00 Attending Provider: Teresa Sunshine Primary Care Provider: Sharri Rincon NP Discharge Orders/Prescriptions Prescriptions: No Action PNV-DHA 27 mg iron-1 mg -300 mg capsule 1 cap PO DAILY Referrals / Follow Up: Sharri Rincon NP, DEVELOPMENT ADMINISTRATOR-C [Primary Care Provider] - Disposition Disposition (needs filled in before D/C Order can be placed): Home, Self Care
[2022-07-31] MEDS: 0.9% Saline Lock 10 ML Syringe IV (18:15)
[2022-08-01] VITALS (11 sets, daily range): BP systolic 114–128; BP diastolic 54–65; PULSE 72–85; RESP 16; TEMP 36.3–36.8; O2SAT 97–99
--- NOTE | 2022-08-01 08:37 | PCM.PN.OB ---
Subjective Subjective Patient doing well without complaints. Tolerating PO. Ambulating and voiding without difficulty. feeding well. Denies chest pain, shortness of breath, calf pain/swelling, fevers, chills, lightheadedness. Objective Data Objective Data Vital Signs: Vital Signs Temp Pulse Resp BP Pulse Ox O2 Del Method 97.9 F 85 16 122/58 H 98 Room Air 08/01/22 04:42 08/01/22 04:42 08/01/22 04:42 08/01/22 04:42 08/01/22 04:42 08/01/22 04:42 Oxygen Delivery Method Room Air Weight: 208 lb 12.8 oz Body Mass Index (BMI) 35.8 Intake & Output: Intake and Output for Last 24 Hours 07/30/22 07/31/22 08/01/22 23:59 23:59 23:59 Intake Total 2134.37 / 2134.37 Output Total 1175 / 1175 Balance 959.37 / 959.37 Lab / Micro Data Result Diagrams: 07/31/22 07:40 Labs: Laboratory Results - last 24 hr 07/31/22 07:40: Blood Type O POSITIVE, Antibody Screen NEGATIVE ROS Constitutional Constitutional: Reports systems reviewed and no addt'l complaints, except as documented Cardiovascular Cardiovascular: Reports systems reviewed and no addt'l complaints, except as documented Respiratory/Chest Respiratory/Chest: Reports systems reviewed and no addt'l complaints, except as documented Gastrointestinal Gastrointestinal: Reports systems reviewed and no addt'l complaints, except as documented Physical Exam Const alert, oriented x3 and no apparent distress HEENT Head and Scalp: atraumatic Resp normal respiratory effort GI soft to palpation and non-tender Bimanual Exam - Vag & Uterus: uterus non-tender Uterus Palpation: uterus fundus firm (below Umbilicus) Assessment & Plan (1) Vaginal delivery: COMMENT: IOL postdates SM 41 boy Jarrell PLAN: Plan s/p PPD # 1 1. routine post delivery care 2. breast feeding- support given 3. rh positive 4. rubella immune
[2022-08-01] MEDS: Naproxen 500 MG Tablet PO (08:44)
--- NOTE | 2022-08-03 10:43 | PCM.NUR.HP ---
Objective Objective Data: Weight: 94.71 kg Vital Signs Temp Pulse Resp BP BP Pulse Ox O2 Del Method 08/01/22 20:00 97.6 F L 76 16 119/61 98 Room Air 08/01/22 16:30 98.2 F 76 16 127/65 H 98 Room Air 08/01/22 20:10 81 08/01/22 20:10 119/61 08/01/22 20:09 98 08/01/22 20:09 84 08/01/22 16:30 97 08/01/22 16:31 72 08/01/22 16:31 127/65 H Vital Signs Vital Signs Vital Signs: Weight Weight: 94.71 kg Body Mass Index (BMI) 35.8 General Weight: 94.71 kg
--- NOTE | 2022-08-04 14:00 | CASEMGMT ---
Social Work Brief Assessment Labor and Delivery Unit Patient Address: [address] [place], [place] [address] Phone number: [phone] Date of Referral/Notification: 08/02/2022 Time of Referral: [phone] Referred By: Nursing notification Date of Intervention: 08/04/2022 Time of Intervention: 1400 Reason for Referral: Baby in special care nursery Informant: Medical record and mother of baby (MOB) Nichole Choi History: MOB is a 32-year-old female, to the father of baby (FOB) REGGIE Choi. MOB and FOB have 2 children at home Jonathan (09/06/2020) and baby boy Jarrell Choi (07/31/2022). BERNARDA is 3, para 1 now 2 after delivering Naveen. care started at 10 weeks and regular thereafter. Noted in medical record BERNARDA had a tick removed at 23 weeks gestation. To be delivered weighing 9 pounds 1 ounce and Apgars were 8 and 9 at 1 and 5 minutes of life respectively. was transferred into the [facility] special care nursery due to episodes of tachypnea. Medical record indicates the FOB is a teacher at the [employer] career [employer]. MOB reports that both she and the FOB are in the [employer] and plan to return in September. 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 MOB denies any history of mental health or any depression history. No reports of any substance use. Maternal drug screen was negative on 12/29/2019. Assessment: Spoke with MOB via the phone, due to discharge prior to being seen in person. MOB reports to be doing well at home and denies any concerns regarding mood or anxiety issues. Reports has learned about this topic in medical school. Denies any current concerns regarding emotional distress. MOB reports to have a good support network from family and friends. FOB will be off of work until September and able to help MOB at home. No reported concerns with housing, transportation or supplies. MOB reports to our return should concerns or distress arise. Expressed appreciation for phone call in the time to check in on how BERNARDA was doing. MOB did decline any resource information including depression information being mailed reporting to feel she is doing very well. Plan: Intervention and MOB discharged home. He reports to have good support from family and denies any social work needs. No further needs requested or indicated. -KJ Harvey, CASTILLO *This note was generated with [employer] dictation software. It may contain incorrect words, spelling, and punctuation that were not noted in review of the chart prior to signing*
== END 2022-08-01 22:00 | disposition home or self-care (01) | DRG 807 ==
PROVIDERS: Admitting Provider Obstetrics & Gynecology; PCP Nurse Practitioner Family; Visit Provider Obstetrics & Gynecology
DX: O70.1 Second degree perineal laceration during delivery (principal); Z37.0 Single live birth; Z3A.39 39 weeks gestation of pregnancy
CPT/HCPCS: 59025; 59050; 85025; 86850; 86900; 86901; 99218; J7120; A4216; G0378